=== PATIENT | female | born 2000 | race American Indian/Alaskan Native ===

== ENCOUNTER 2021-11-02 08:45 | Emergency (ER) | payer OTHER ==
[2021-11-02] MEDS ORDERED: ONDANSETRON 4 MG ODT TAB PO ONE (09:33)
--- NOTE | 2021-11-02 09:33 | Event Note ---
ED Screening Note ED Screening Note: ACTIVE N/V IN ER ZOFRAN ORDERED This initial assessment/diagnostic orders/clinical plan/treatment(s) is/are subject to change based on patients health status, clinical progression and re- assessment by fellow clinical providers in the ED. Further treatment and workup at subsequent clinical providers discretion. Patient/guardian urged not to elope from the ED as their condition may be serious if not clinically assessed and managed. Initial orders include: LABS UA ORDERED
[2021-11-02 10:51] LABS: Basophils % (Auto) 0.3 % (0.0-1.8); Eosinophils % (Auto) 0.2 % (0.0-4.3); Hematocrit 29.7 % (30.3-42.9); Hemoglobin 9.7 gm/dl (10.1-14.3); Lymphocytes # (Auto) 0.6 K/mm3 (1.2-5.4); Lymphocytes % (Auto) 19.8 % (13.4-35.0); Mean Corpuscular HGB Conc 33 % (30-34); Mean Corpuscular Volume 79 fl (79-97); Monocytes # (Auto) 0.3 K/mm3 (0.0-0.8); Monocytes % (Auto) 9.8 % (0.0-7.3); Platelet Count 248 K/mm3 (140-440); Red Blood Count 3.78 M/mm3 (3.65-5.03); Red Cell Distribution Width 18.1 % (13.2-15.2)
[2021-11-02 11:08] LABS: Alanine Aminotransferase 9 units/L (7-56); Albumin 4.1 g/dL (3.9-5); BUN/Creatinine Ratio 4; Blood Urea Nitrogen 4 mg/dL (7-17); Calcium 9.1 mg/dL (8.4-10.2); Hemolysis Index 0
[2021-11-02] MEDS ORDERED: SODIUM CHLORIDE 0.9% 1000 ML 1,000 ML IV ONE (14:31)
[2021-11-02] MEDS ORDERED: ONDANSETRON 4 MG/2 ML INJ IV ONE (14:31)
[2021-11-02] MEDS ORDERED: POTASSIUM CHLORIDE ER 20 MEQ TAB PO ONE (14:31)
[2021-11-02] MEDS ORDERED: KETOROLAC 30 MG/1 ML INJ IV ONE (17:35)
[2021-11-02 17:54] LABS: Bacteria,Urine 1+ /HPF (Negative); Hyaline Casts,Urine 3 /LPF; Mucus,Urine FEW /HPF
--- NOTE | 2021-11-02 18:23 | Emergency Department Report ---
ED N/V/D HPI - General Chief complaint: Nausea/Vomiting/Diarrhea Stated complaint: MALAISE PUI?: No Time Seen by Provider: 11/02/21 14:57 Source: EMS Mode of arrival: Ambulatory Limitations: No Limitations - History of Present Illness Initial comments: 21 YO FEMALE COMES TO ER WITH N/V. SHE ENDORSES WEIGHT LOSS. POOR APPETITE. SHE HAS NO FEVER OR CHILLS. NO BACK PAIN. NO VAG D/C. PT AMBULATORY NON AMBULATORY NON ILL AND TAKING PO complaint: nausea, vomiting -: Gradual, days(s) Associated Abdominal Pain: No Location: diffuse Quality: cramping Consistency: intermittent Improves with: none Worsens with: none Associated Symptoms: denies other symptoms, nausea/vomiting. denies: myalgias, chest pain, cough, diaphoresis, fever/chills, headaches, loss of appetite, malaise, rash, dysuria, shortness of breath, syncope, weakness - Related Data Previous Rx's Medication Instructions Recorded Last Taken Type Famotidine [Pepcid] 20 mg PO DAILY #30 tablet 11/02/21 Unknown Rx Ondansetron [Zofran Odt] 4 mg PO Q8HR PRN #10 tab.rapdis 11/02/21 Unknown Rx Sulfamethoxazole/Trimethoprim 1 each PO BID #10 tablet 11/02/21 Unknown Rx [Bactrim DS TAB] Allergies Allergy/AdvReac Type Severity Reaction Status Date / Time No Known Allergies Allergy Unverified 11/02/21 08:56 ED Review of Systems ROS: Stated complaint: MALAISE Other details as noted in HPI Comment: All other systems reviewed and negative ED Past Medical Hx - Past Medical History Previous Medical History?: Yes Hx Asthma: Yes Additional medical history: heart murmor,asthma - Surgical History Past Surgical History?: No - Family History Family history: no significant - Social History Smoking Status: Never Smoker Substance Use Type: Alcohol - Medications Home Medications: Home Medications Medication Instructions Recorded Confirmed Last Taken Type Famotidine [Pepcid] 20 mg PO DAILY #30 tablet 11/02/21 Unknown Rx Ondansetron [Zofran Odt] 4 mg PO Q8HR PRN #10 tab.rapdis 11/02/21 Unknown Rx Sulfamethoxazole/Trimethoprim 1 each PO BID #10 tablet 11/02/21 Unknown Rx [Bactrim DS TAB] ED Physical Exam - General Limitations: No Limitations General appearance: alert, in no apparent distress - Head Head exam: Present: atraumatic, normocephalic - Eye Eye exam: Present: normal appearance - ENT ENT exam: Present: mucous membranes moist - Neck Neck exam: Present: normal inspection - Respiratory Respiratory exam: Present: normal lung sounds bilaterally. Absent: respiratory distress - Cardiovascular Cardiovascular Exam: Present: regular rate, normal rhythm. Absent: systolic murmur, diastolic murmur, rubs, gallop - GI/Abdominal GI/Abdominal exam: Present: soft, normal bowel sounds - Extremities Exam Extremities exam: Present: normal inspection - Back Exam Back exam: Present: normal inspection - Neurological Exam Neurological exam: Present: alert, oriented X3 - Psychiatric Psychiatric exam: Present: normal affect, normal mood - Skin Skin exam: Present: warm, dry, intact, normal color. Absent: rash ED Course Vital Signs 11/02/21 08:54 Temperature 98.7 F Pulse Rate 71 Respiratory 18 Rate Blood Pressure 130/72 [Right] O2 Sat by Pulse 99 Oximetry ED Medical Decision Making - Lab Data Result diagrams: 11/02/21 10:00 11/02/21 10:00 - Medical Decision Making Lab Results 11/02/21 11/02/21 11/02/21 Range/Units 10:00 10:00 10:00 WBC 3.2 L (4.5-11.0) K/mm3 RBC 3.78 (3.65-5.03) M/mm3 Hgb 9.7 L (10.1-14.3) gm/dl Hct 29.7 L (30.3-42.9) % MCV 79 (79-97) fl MCH 26 L (28-32) pg MCHC 33 (30-34) % RDW 18.1 H (13.2-15.2) % Plt Count 248 (140-440) K/mm3 Lymph % (Auto) 19.8 (13.4-35.0) % [place] % (Auto) 9.8 H (0.0-7.3) % Eos % (Auto) 0.2 (0.0-4.3) % Baso % (Auto) 0.3 (0.0-1.8) % Lymph # (Auto) 0.6 L (1.2-5.4) K/mm3 [place] # (Auto) 0.3 (0.0-0.8) K/mm3 Eos # (Auto) 0.0 (0.0-0.4) K/mm3 Baso # (Auto) 0.0 (0.0-0.1) K/mm3 Seg Neutrophils % 69.9 (40.0-70.0) % Seg Neutrophils # 2.2 (1.8-7.7) K/mm3 Sodium 139 (137-145) mmol/L Potassium 3.2 L (3.6-5.0) mmol/L Chloride 105.0 (98-107) mmol/L Carbon Dioxide 23 (22-30) mmol/L Anion Gap 14 mmol/L BUN 4 L (7-17) mg/dL Creatinine 1.0 (0.6-1.2) mg/dL Estimated GFR > 60 ml/min BUN/Creatinine Ratio 4 % Glucose 97 (65-100) mg/dL Calcium 9.1 (8.4-10.2) mg/dL Total Bilirubin 0.30 (0.1-1.2) mg/dL AST 13 (5-40) units/L ALT 9 (7-56) units/L Alkaline Phosphatase 44 (35-129) units/L Total Protein 8.6 H (6.3-8.2) g/dL Albumin 4.1 (3.9-5) g/dL Albumin/Globulin Ratio 0.9 % Lipase 25 (13-60) units/L HCG, Quant < 2 (0-4) mIU/mL U Epithel Cells (Auto) (0-13.0) /HPF 11/02/21 Range/Units 14:34 WBC (4.5-11.0) K/mm3 RBC (3.65-5.03) M/mm3 Hgb (10.1-14.3) gm/dl Hct (30.3-42.9) % MCV (79-97) fl MCH (28-32) pg MCHC (30-34) % RDW (13.2-15.2) % Plt Count (140-440) K/mm3 Lymph % (Auto) (13.4-35.0) % [place] % (Auto) (0.0-7.3) % Eos % (Auto) (0.0-4.3) % Baso % (Auto) (0.0-1.8) % Lymph # (Auto) (1.2-5.4) K/mm3 [place] # (Auto) (0.0-0.8) K/mm3 Eos # (Auto) (0.0-0.4) K/mm3 Baso # (Auto) (0.0-0.1) K/mm3 Seg Neutrophils % (40.0-70.0) % Seg Neutrophils # (1.8-7.7) K/mm3 Sodium (137-145) mmol/L Potassium (3.6-5.0) mmol/L Chloride (98-107) mmol/L Carbon Dioxide (22-30) mmol/L Anion Gap mmol/L BUN (7-17) mg/dL Creatinine (0.6-1.2) mg/dL Estimated GFR ml/min BUN/Creatinine Ratio % Glucose (65-100) mg/dL Calcium (8.4-10.2) mg/dL Total Bilirubin (0.1-1.2) mg/dL AST (5-40) units/L ALT (7-56) units/L Alkaline Phosphatase (35-129) units/L Total Protein (6.3-8.2) g/dL Albumin (3.9-5) g/dL Albumin/Globulin Ratio % Lipase (13-60) units/L HCG, Quant (0-4) mIU/mL U Epithel Cells (Auto) 4.0 (0-13.0) /HPF Vital Signs 11/02/21 08:54 Temperature 98.7 F Pulse Rate 71 Respiratory 18 Rate Blood Pressure 130/72 [Right] O2 Sat by Pulse 99 Oximetry LABS NOTED K REPLACED UA NOTED 1L NS ROCEPHIN 1 GM IM TORADOL FOR PAIN PT UPDATED ON PLAN OF CARE. PT BEING DC WITH DC PLAN OF CARE. SHE VERBALIZES UNDERSTANDING OF PLAN OF CARE. - Differential Diagnosis RO UTI/PYLO/PREG/CHOLEY Critical care attestation.: If time is entered above; I have spent that time in minutes in the direct care of this critically ill patient, excluding procedure time. ED Disposition Clinical Impression: Hypokalemia UTI (urinary tract infection) Qualifiers: Urinary tract infection type: site unspecified Hematuria presence: without hematuria Qualified Code(s): N39.0 - Urinary tract infection, site not specified Disposition: 01 HOME / SELF CARE / HOMELESS Is pt being admited?: No Does the pt Need Aspirin: No Condition: Stable Instructions: Potassium Content of Foods Additional Instructions: STAY WELL HYDRATED MOTRIN OR TYLENOL FOR PAIN DIET TOLERATED ADVANCE SLOWLY FOLLOW UP WITH PCP IN 48 HOURS REFERRAL BELOW Prescriptions: Sulfamethoxazole/Trimethoprim [Bactrim DS TAB] 1 each PO BID #10 tablet Famotidine [Pepcid] 20 mg PO DAILY #30 tablet Ondansetron [Zofran Odt] 4 mg PO Q8HR PRN #10 tab.rapdis PRN Reason: Vomiting Referrals: RADU GUARDADO MD [Primary Care Provider] - 3-5 Days DEO TERRELL MD [Staff Physician] - 3-5 Days Forms: Accompanied Note, Work/School Release Form(ED) Time of Disposition: 18:22
[2021-11-02 18:24] LABS: Color,Urine Yellow (Yellow)
[2021-11-02 18:25] LABS: Bilirubin,Urine Negative (Negative); Blood,Urine 3+ (Negative); Protein,Urine >500 mg/dL (Negative)
[2021-11-02 18:26] LABS: RBC,Urine < 1.0 /HPF (0.0-6.0)
[2021-11-02] MEDS ORDERED: FAMOTIDINE 20 MG TAB PO ONE (18:28)
[2021-11-02] MEDS ORDERED: cefTRIAXone/NS 1 GM/50 ML 1 GM/50 ML BAG IV ONE (18:28)
[2021-11-02 18:46] VITALS: BP 102/83
== END 2021-11-02 19:20 | disposition home or self-care (01) ==
LOC: ED 08:45
DX: N39.0 Urinary tract infection, site not specified (principal); E87.6 Hypokalemia; R01.1 Cardiac murmur, unspecified; J45.909 Unspecified asthma, uncomplicated
CPT/HCPCS: 36415; 80053; 81001; 83690; 84702; 85025; 87086; 96361; 96365; 96375; 99284; J0696; J1885; J2405; J7030